=== PATIENT | female | born 1975 | race Caucasian/White ===

== ENCOUNTER 2024-07-11 15:41 | Outpatient (CLI) | payer BC, SELFPAY ==
--- NOTE | 2024-07-11 16:00 | MM_ITS ---
WS: [id number] VIEWS: MLO and CC views both breasts. 3D digital tomosynthesis is also included in this exam. No priors. Baseline study. Findings: There are scattered areas of fibroglandular density. There are several of the lobulated nodular densities noted throughout both breasts. These are probabl y cysts however bilateral breast ultrasound is suggested for confirmation. There were no spiculated m asses, tumor calcification or architectural distortion in either breast. MM/MM scr BI tomosynthesis [id number] Impression: BI-RADS: 0 - Incomplete: Need additional imaging evaluation. FOLLOW-UP: Need Additional Imaging This mammogram was also analyzed by the Computer Aided Detection System [employer].
== END 2024-07-11 15:42 | disposition home or self-care (01) ==
LOC: MOBLMAM 15:58
PROVIDERS: PCP Nurse Practitioner Family; Visit Provider Nurse Practitioner Family
DX: Z12.31 Encounter for screening mammogram for malignant neoplasm of breast (principal); R92.323 Mammographic fibroglandular density, bilateral breasts; N64.89 Other specified disorders of breast
CPT/HCPCS: 77063; 77067